=== PATIENT | male | born 2000 | race Caucasian/White ===

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

== ENCOUNTER → 2024-07-27 | Outpatient (REF) | payer BC | LOC: M WUC 19:34 | PROVIDERS: ATTEND Physician Assistant | DX: M54.50 Low back pain, unspecified (principal) ==

== ENCOUNTER → 2024-07-29 | Outpatient (REF) | payer BC | LOC: M LAB REF 18:33 | PROVIDERS: ATTEND Student in an Organized Health Care Education/Training Program | DX: J06.9 Acute upper respiratory infection, unspecified (principal) ==